=== PATIENT | female | born 1990 | race Hispanic/Latino ===

== ENCOUNTER 2022-10-08 09:19 | Emergency (ER) | payer OTHER ==
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
--- NOTE | 2022-10-08 10:29 | RAD REPORT ---
EXAM DESCRIPTION: RAD - Shoulder Left 2 View - 10/08/2022 10:23 am CLINICAL HISTORY: PAIN COMPARISON: No comparisons FINDINGS/IMPRESSION: No acute fracture. No malalignment. No significant focal degenerative changes.
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
[2022-10-08 11:18] VITALS: BP 134/75; TEMP 98.2; O2SAT 98
== END 2022-10-08 11:03 | disposition home or self-care (01) ==
LOC: ER 09:19
DX: S20.311A Abrasion of right front wall of thorax, initial encounter (principal); V43.62XA Car passenger injured in collision with other type car in traffic accident, initial encounter; E11.9 Type 2 diabetes mellitus without complications; I10 Essential (primary) hypertension
CPT/HCPCS: 71045; 99283